=== PATIENT | female | born 1985 | race Two or more races ===

== ENCOUNTER 2024-12-20 10:06 | Inpatient (IN) | payer MEDICAID, OTHER ==
[~2024-12-20] VITALS: Ht 165.1 cm; Wt 97.8 kg
[2024-12-20] MEDS: KETOROLAC TROMETH 30 MG/ML 1ML VIAL IV ONE (10:43)
--- NOTE | 2024-12-20 10:43 | ED.PDOC ---
History of Present Illness HPI Comments Patient is a 39-year-old female with a past medical history of type 2 diabetes mellitus, hypertension, hyperlipidemia presented to the ED with a chief complaint of abdominal pain for the last 2 weeks. Patient reported she was constipated for about a week, started to have abdominal pain located across the lower abdomen in the left lower quadrant, suprapubic area and the right lower quadrant, constant with intermittent episodes of sharp pain, nonradiating, no associated diarrhea/vomiting/nausea, denied dysuria/increased frequency. Patient went to the urgent care on Friday and was advised to drink more water and increased fiber. She reports to having a small bowel movement yesterday, and complains of pressure in her anal region. Patient does not report of any abdominal surgeries in the past, last menstrual cycle was on 09 December. Chief Complaint: Abdominal Pain Time Seen by MD: 10:18 Allergies: Coded Allergies: NO KNOWN ALLERGIES (Unverified , 12/20/24) Mode of Arrival: Ambulatory Past Medical History PAST MEDICAL HISTORY: DM, High Lipids, HTN Surgical History: Denies all surgeries MAGNETIC RESONANCE IMAGING COORDINATOR History: No Pertinent MAGNETIC RESONANCE IMAGING COORDINATOR History Family History Family History: Reviewed,noncontributory to illness, No family hx of Cancer, No family hx of DM, No family hx of Heart vincent, No family hx of HTN, No family hx ofKidney vincent, No family hx of Liver vincent, No family hx of Lung vincent, No family hx of Stroke Social History Smoker: Non-Smoker Alcohol: Denies ETOH Use Drugs: Denies Drug Use Constitutional: denies: chills, diaphoresis, fatigue, fever, malaise, sweats, weakness, others EENTM: denies: blurred vision, double vision, ear bleeding, ear discharge, ear drainage, ear pain, ear ringing, eye pain, eye redness, hearing loss, mouth pain, mouth swelling, nasal discharge, nose bleeding, nose congestion, nose pain, photophobia, tearing, throat pain, throat swelling, voice changes, others Respiratory: denies: cough, hemoptysis, orthopnea, SOB at rest, shortness of breath, SOB with excertion, stridor, wheezing, others Cardiovascular: denies: chest pain, dizzy spells, diaphoresis, Dyspnea on exertion, edema, irregular heart beat, left arm pain, lightheadedness, palpitations, PND, syncope, others Gastrointestinal: reports: abdominal pain, constipated, poor appetite Genitourinary: denies: abnormal vagina bleeding, burning, dyspareunia, dysuria, flank pain, frequency, hematuria, incontinence, pain, , vagina discharge, urgency, others Neurological: denies: dizziness, fainting, headache, left sided numbness, left sided weakness, numbness, paresthesia, pre-existing deficit, right sided numbness, right sided weakness, seizure, speech problems, tingling, tremors, weakness, others Musculoskeletal: denies: back pain, gout, joint pain, joint swelling, muscle pain, muscle stiffness, neck pain, others Integumetry: denies: bruises, change in color, change in hair/nails, dryness, laceration, lesions, lumps, rash, wounds, others Allergic/Immunocompromised: denies: Difficulty Healing, Frequent Infections, Hives, Itching, others Hematologic/Lymphatic: denies: anemia, blood clots, easy bleeding, easy bruising, swollen glands, others Endocrine: denies: excessive hunger, excessive sweating, excessive thirst, excessive urination, flushing, intolerance to cold, intolerance to heat, unexplained weight gain, unexplained weight loss, others Psychiatric: denies: anxiety, bipolar disorder, depression, hopeless, panic disorder, schizophrenia, sleepless, suicidal, others Physical Exam General Appearance: Mild Distress HEENT: Normal ENT Inspection, Pharynx Normal, TMs Normal Neck: Full Range of Motion, Non-Tender, Normal, Normal Inspection Respiratory: Chest Non-Tender, Lungs Clear, No Accessory Muscle Use, No Respiratory Distress, Normal Breath Sounds Cardiovascular: No Edema, No JVD, No Murmur, No Gallop, Normal Peripheral Pulses, Regular Rate/Rhythm Breast Exam: Deferred Gastrointestinal: LLQ, Normal Bowel Sounds, RLQ, Suprapubic, Tenderness Genitalia: Deferred Pelvic: Deferred Rectal: Deferred Extremities: No calf tenderness, Normal capillary refill, Normal inspection, Normal range of motion, Non-tender, No pedal edema Neurologic: Alert, snowboard instructor II-XII nml as Tested, No Motor Deficits, Normal Affect, Normal Mood, No Sensory Deficits Cerebellar Function: Normal Reflexes: Normal Skin: Dry, Normal Color, Warm Peripheral Pulses: 2+ carotid (R), 2+ carotid (L), 2+ femoral (R), 2+ femoral (L), 2+ dorsalis pedis (R), 2+ dorsalis pedis (L), 2+ Radial (R), 2+ Radial (L) Lymphatic: No Adenopathy Was a procedure done? Was a procedure done?: No Differential Dx Considerations may include: Acute diverticulitis, colitis, appendicitis, cystitis, rule out ectopic X-Ray, Labs, Meds, VS Vital Signs Date Time Temp Pulse Resp B/P (MAP) Pulse Ox O2 Delivery O2 Flow Rate FiO2 12/20/24 10:44 102 18 95 Room Air 12/20/24 10:44 102 18 124/73 (90) 95 12/20/24 10:19 97.9 110 17 119/97 (104) 99 97.9 Lab Test 12/20/24 11:24 12/20/24 10:39 12/20/24 10:38 Range/Units White Blood Count 19.5 H 4.4-10.8 10^3/uL Red Blood Count 4.89 4.0-5.20 10^6/uL Hemoglobin 14.2 12.2-16.2 g/dL Hematocrit 42.8 36.0-46.0 % Mean Corpuscular Volume 87.4 80.0-100.0 fL Mean Corpuscular Hemoglobin 29.1 28.0-32.0 pg Mean Corpuscular Hemoglobin Concent 33.3 32.0-36.0 g/dL Red Cell Distribution Width 14.0 11.8-14.3 % Platelet Count 374 140-450 10^3/uL Mean Platelet Volume 8.6 6.9-10.8 fL Neutrophils (%) (Auto) 84.9 H 37.0-80.0 % Lymphocytes (%) (Auto) 7.0 L 10.0-50.0 % Monocytes (%) (Auto) 6.8 0.0-12.0 % Eosinophils (%) (Auto) 0.5 0.0-7.0 % Basophils (%) (Auto) 0.8 0.0-2.0 % Neutrophils # (Auto) 16.5 H 1.6-8.6 10 ^3/uL Lymphocytes # (Auto) 1.4 0.4-5.4 10 ^3/uL Monocytes # (Auto) 1.3 0-1.3 10 ^3/uL Eosinophils # (Auto) 0.1 0-0.8 10 ^3/uL Basophils # (Auto) 0.2 0-0.2 10 ^3/uL Nucleated Red Blood Cells 0.0 % Sodium Level 137 136-145 mmol/L Potassium Level 4.3 3.5-5.1 mmol/L Chloride Level 102 98-107 mmol/L Carbon Dioxide Level 25 20-31 mmol/L Anion Gap 10 5-15 Blood Urea Nitrogen 9 9-23 mg/dL Creatinine 0.76 0.550-1.02 mg/dL Glomerular Filtration Rate Calc 103 >90 mL/min BUN/Creatinine Ratio 11.8 10.0-20.0 Serum Glucose 179 H 74-106 mg/dL Calcium Level 10.4 8.7-10.4 mg/dL Urine Opiates Screen Neg NEGATIVE Urine Fentanyl Screen Neg NEGATIVE Urine Barbiturates Screen Neg NEGATIVE Urine Phencyclidine Screen Neg NEGATIVE Urine Amphetamines Screen Neg NEGATIVE Urine Benzodiazepines Screen Neg NEGATIVE Urine Cocaine Screen Neg NEGATIVE Urine Cannabinoids Screen Neg NEGATIVE Urine Color Light-yellow Yellow Urine Clarity Clear Clear Urine pH 6.0 5.0-9.0 Urine Specific [place] 1.043 H 1.001-1.035 Urine Protein Negative Negative Urine Ketones 1+ H Negative Urine Blood Negative Negative /uL Urine Nitrite Negative Negative Urine Bilirubin Negative Negative Urine Urobilinogen Normal Negative mg/dL Urine Leukocyte Esterase Negative Negative /uL Urine RBC 2 0 - 4 /hpf Urine Microscopic WBC 1 0-5 /HPF Urine Squamous Epithelial Cells Few <5 /hpf Urine Bacteria None seen None Seen /hpf Urine Glucose 4+ H Normal mg/dL Urine Test Negative Negative Current Medications Medications (Trade) Dose Ordered Sig/[facility] Route Start Time Stop Time Status Last Admin Ketorolac Tromethamine (Toradol Injection) 15 mg ONCE ONCE IV 12/20/24 10:45 12/20/24 10:46 DC 12/20/24 10:43 Sodium Chloride 500 ml @ 500 mls/hr Q1H ONCE IV 12/20/24 11:30 12/20/24 12:29 DC 12/20/24 11:37 Piperacillin Sod/ Tazobactam Sod 100 ml @ 100 mls/hr ONCE ONCE IV 12/20/24 12:30 12/20/24 13:29 12/20/24 12:51 Sodium Chloride 2,000 ml @ 1,000 mls/hr Q2H ONCE IV 12/20/24 12:30 12/20/24 14:29 12/20/24 12:40 Patient is a 39-year-old female presented to the ED with a chief complaint of abdominal pain across the lower abdomen since the last 2 weeks. Patient reported of constipation, denied any history of abdominal surgeries, urine test was negative. CT abdomen pelvis without contrast was done which showed 9.3 cm right adnexal cystic mixed density mass probably representing a cystic and solid mass, cholelithiasis. Patient had elevated WBC count with left shift and was tachycardic, with suspicion of with the mass being in abscess, patient was given Zosyn 3.375 mg 1 dose, pelvic ultrasound was done and OBGYN were consulted, spoke with Dr. Florentino, and the agricultural consultant once pelvic ultrasound results to be discussed once they are back. Patient will need further inpatient management and she agrees to the plan. Time of 1ST Reevaluation: 11:50 Reevaluation 1ST: Improved Time of 2ND Reevaluation: 12:24 Reevaluation 2ND: Improved Patient Education/Counseling: Diagnosis, Treatment Family Education/Counseling: No Family Present SEPSIS Sepsis Screen Date sepsis recognized/suspect: Dec 20, 2024 Time Sepsis recognized/suspect: 101 Recent Procedure: No On Antibiotic Therapy: No Respiratory Rate >20: No Heart Rate >90: Yes Temp<36 C (96.8 F) or >38.3 C: No SBP <90 or MAP <65 mmHG: No New Acute Mental Status Change: No Is the patient on CPAP, BIPAP,: No Physician Orders Heplock Iv (12/20/24 10:33) Ct Ab Pel Wo Con-No Oral Or Iv (12/20/24 11:24) Lactic Acid W/ Reflex Order (12/20/24 12:25) Piperacillin-Tazob 3.375gm (Zosyn 3.375g (12/20/24 12:30) Pelvic (12/20/24 12:25) Sodium Chloride 0.9% (12/20/24 12:30) * Blanket Cutter Hand Consultation (12/20/24 12:29) Vital Signs Date Time Temp Pulse Resp B/P (MAP) Pulse Ox O2 Delivery O2 Flow Rate FiO2 12/20/24 10:44 102 18 95 Room Air 12/20/24 10:44 102 18 124/73 (90) 95 12/20/24 10:19 97.9 110 17 119/97 (104) 99 97.9 Laboratory Tests Test 12/20/24 11:24 White Blood Count 19.5 10^3/uL (4.4-10.8) H Medications Medications Dose Ordered Sig/[facility] Route Start Time Stop Time Status Last Admin Dose Admin Ketorolac Tromethamine 15 mg ONCE ONCE IV 12/20/24 10:45 12/20/24 10:46 DC 12/20/24 10:43 Piperacillin Sod/ Tazobactam Sod 100 ml @ 100 mls/hr ONCE ONCE IV 12/20/24 12:30 12/20/24 13:29 12/20/24 12:51 Sodium Chloride 500 ml @ 500 mls/hr Q1H ONCE IV 12/20/24 11:30 12/20/24 12:29 DC 12/20/24 11:37 Sodium Chloride 2,000 ml @ 1,000 mls/hr Q2H ONCE IV 12/20/24 12:30 12/20/24 14:29 12/20/24 12:40 Departure 1 Departure Time of Disposition: 12:30 Impression: Primary Impression: Adnexal mass Additional Impressions: Constipation Sepsis Cholelithiases Disposition: ADMITTED INPATIENT Condition: Fair Critical Care Note Critical Care Time?: No Stability Stability form required: No Heart Score Heart Score: Heart Score Response (Comments) Value History N/A 0 EKG N/A 0 Age N/A 0 Risk Factors N/A 0 Troponin N/A 0 Total 0 TRINO ULLOA RESIDENT Dec 20, 2024 10:43
[2024-12-20 11:06] LABS: Amphetamine Screen, Urine Neg (NEGATIVE); Barbiturate Scree,Urine Neg (NEGATIVE); Benzodiazephine Screen, Urine Neg (NEGATIVE); Cannabinoid Screen, Urine Neg (NEGATIVE); Cocaine Screen, Urine Neg (NEGATIVE); Opiate Scree,Urine Neg (NEGATIVE); Phencyclidine Screen, Urine Neg (NEGATIVE)
[2024-12-20 11:07] LABS: Urine Protein, UAD Negative (Negative)
[2024-12-20] MEDS: SODIUM CHLORIDE 0.9% 500 ML IV ONE (11:37)
[2024-12-20 11:38] LABS: Hematocrit 42.8 % (36.0-46.0); Hemoglobin 14.2 g/dL (12.2-16.2); Mean Corpuscular Hemoglobin 29.1 pg (28.0-32.0); Mean Corpuscular Volume 87.4 fL (80.0-100.0); Nucleated Red Blood Cells % 0.0 %
[2024-12-20 11:48] LABS: Chloride 102 mmol/L (98-107); Potassium 4.3 mmol/L (3.5-5.1); Sodium 137 mmol/L (136-145)
[2024-12-20 11:49] LABS: Anion Gap 10 (5-15); Calcium 10.4 mg/dL (8.7-10.4); Carbon Dioxide 25 mmol/L (20-31)
[2024-12-20 11:54] LABS: BUN/Creatinine Ratio 11.8 (10.0-20.0); Blood Urea Nitrogen 9 mg/dL (9-23); Glucose 179 mg/dL (74-106)
--- NOTE | 2024-12-20 12:05 | DVH ---
Exam: CT CT AB PEL WO CON-NO ORAL OR IV History: lower abd pain Comparison Study: None Technique: Multidetector spiral CT of the abdomen and pelvis was performed from lung bases to pubic s ymphysis. Imaging was performed without intravenous contrast. Coronal and sagittal multiplanar reform ats were obtained from the axial data set by the technologist. Radiation Dose : 1. Abdomen/Pelvis: CTDIvol 19.54 mGy, DLP 1046.65 mGy*cm. Findings: Evaluation of vasculature and solid organs is limited due to lack of intravenous contrast use. Lung Bases: Lung bases are clear. Visualized portions of the heart and pericardium are unremarkable. Liver: The liver is normal in size. No focal lesions. Diffusely hypoattenuating liver parenchyma con sistent with hepatic steatosis. Gallbladder and Biliary Tree: Gallstone. No intrahepatic or extrahepatic biliary ductal dilatation. Spleen: Unremarkable Pancreas: The pancreas is grossly unremarkable. Adrenal Glands: Unremarkable Kidneys: Kidneys are unremarkable without calculi or hydronephrosis. GI tract: The stomach is grossly normal in appearance. No evidence of small bowel wall thickening or abnormal dilatation to suggest bowel obstruction. Stool throughout the colon with peripheral lucency representing intraluminal gas. The appendix is not visualized, however no inflammatory changes in the right lower quadrant to suggest acute appendicitis. Peritoneum/mesentery/retroperitoneum. No evidence of free intraperitoneal air. No ascites. No evidenc e of suspicious lymphadenopathy. Abdominal Wall: Unremarkable. Vasculature: The visualized abdominal aorta is normal in size and caliber. Evaluation of abdominal a nd pelvic vessels is limited due to lack of intravenous contrast. Urinary Bladder: Grossly unremarkable for degree of distention. Pelvic Organs: Right adnexal mass is present measuring 7.1 x 9.3 cm attenuation and soft tissue densi ty. Musculoskeletal: No aggressive focal bony lesions, acute fractures or dislocation. Grade 1 anterolist hesis L5-S1. IMPRESSION: 1. No acute abdominal or pelvic findings. 2. 9.3 cm right adnexal cystic mixed density mass probably representing a cystic and solid mass. Pel jo ann ultrasound recommended for further evaluation. 3. Gallstones.
[2024-12-20] MEDS: SODIUM CHLORIDE 0.9% 2,000 ML IV ONE (12:40)
[2024-12-20] MEDS: PIPERACILLIN-TAZOB 3.375GM 100 ML IV ONE (12:51)
--- NOTE | 2024-12-20 14:12 | DVH ---
INDICATION: lower abd pain, right adnex mass on ct TECHNIQUE: Multiple real-time grayscale transabdominal sonographic images along with color and duplex Doppler of the uterus and ovaries were obtained. COMPARISON: None FINDINGS: The uterus measures 10.5 x 5.2 x 5.8 cm. The endometrial stripe measures 1.6 cm. Right ovary measures 10.0 x 6.5 x 8.0 cm with normal Doppler color flow. Probable hemorrhagic right o varian cyst measures 6.6 cm. Left ovary measures 3.1 x 1.8 x 2.7 cm with normal Doppler color flow IMPRESSION: Probable hemorrhagic cyst in the right ovary measures 6.6 cm. Clinical correlation advised. Repeat u ltrasound could be obtained in 6 weeks to assess for complete resolution.
[2024-12-20] MEDS: ACCU-CHEK COMFORT CURVE STRIP VI SCH (16:00)
[2024-12-20] MEDS ORDERED: ONDANSETRON HCL 4 MG/2 ML VIAL IV PRN (16:00)
[2024-12-20] MEDS: InsuLIN REG 1unit/0.01ml Soln (100units/ml) SC SCH (16:00)
[2024-12-20] MEDS ORDERED: DEXTROSE (50%) 50ML SYRG IV PRN (16:00)
[2024-12-20] MEDS ORDERED: ACETAMINOPHEN 325 MG TAB PO PRN (16:00)
[2024-12-20] MEDS ORDERED: NITROGLYCERIN 0.4 MG SL TAB SL PRN (17:15)
[2024-12-20] MEDS ORDERED: MORPHINE SULFATE INJ 2 MG/ml SYRG IV PRN (17:15)
--- NOTE | 2024-12-20 17:15 | DVHHP2 ---
VIVIANE GUIDRY Ananda [facility] 12/20/24 1715: History of Present Illness Reason for Visit: Sepsis, unspecified organism History of Present Illness The patient is a 39-year-old female with past medical history of DM, hypertension, and hyperlipidemia who presented to [facility] ED with complaint of abdominal pain for the past 2 weeks. Patient reported she was constipated for about a week, started to have abdominal pain located across the lower abdomen in the left lower quadrant, suprapubic area radiating to the right lower quadrant, constant with intermittent episodes of sharp pain, getting worse that prompted this visit. Patient was seen and evaluated in the ED, laboratory data shows WBC 19.5, platelets 374, sodium 137, potassium 4.3, BUN 9, creatinine 0.76, glucose 179, calcium 10.4, lactic acid 1.2, blood pressure 124/73, heart rate 102, temperature 97.9 F, O2 saturation 99% room air. Abdomen/pelvis CT revealing 9.3 cm right adrenal cystic mixed density mass probably representing a cystic and solid mass, no acute abdominal pelvic findings. Pelvic ultrasound revealing probable hemorrhagic cyst in the right ovary measures 6.6 cm. Please see medication orders section in the computer. On my assessment, patient denies chest pain, no headache, no dizziness, no shortness of breaths, no diarrhea, no abdominal pain at this moment, no nausea, no vomiting, no fever, no chills. Patient was admitted for further evaluation and medical management. Past Medical History DM, High Lipids, HTN Past Surgical History Denies all surgeries Family History Reviewed, noncontributory to the management of this case. Past Social History The patient lives at home, denies smoking, alcohol or illicit drugs abuse. Review of Systems Constitutional: No: Fever, Chills, Sweats, Weakness, Malaise, Other Eyes: No: Pain, Vision change, Conjunctivae inflammation, Eyelid inflammation, Other, Redness ENT: No: Ear pain, Ear discharge, Nose pain, Nose discharge, Nose congestion, Mouth pain, Mouth swelling, Throat pain, Throat swelling, Other Respiratory: No: Cough, Dry, Shortness of breath, SOB with excertion, Wheezing, Hemoptysis, Pleuritic Pain, Sputum, Wheezing, Other Cardiovascular: No: Chest Pain, Palpitations, Orthopnea, Paroxysmal Noc. Dyspnea, Edema, Lt Headedness, Other Gastrointestinal: Abdominal Pain, Constipation, Other (Poor appetite); No: Nausea, Vomiting, Diarrhea, Melena, Hematochezia Genitourinary: No Dysuria, No Frequency, No Incontinence, No Hematuria, No Retention, No Other Musculoskeletal: No: other, neck pain, shoulder pain, arm pain, back pain, hand pain, leg pain, foot pain Skin: No: Rash, Lesions, Jaundice, Bruising, Other Neurological: No: Weakness, Numbness, Incoordination, Change in speech, Confusion, Seizures, Other Allergies: Coded Allergies: NO KNOWN ALLERGIES (Unverified , 12/20/24) Medications Current Medications Medications Dose Ordered Sig/Nya Route Start Time Stop Time Status Last Admin Dose Admin Piperacillin Sod/ Tazobactam Sod 100 ml @ 25 mls/hr Q8HR IV 12/20/24 16:02 Losartan Potassium 25 mg DAILY PO 12/21/24 10:00 Atorvastatin Calcium 20 mg HS PO 12/20/24 22:00 Clonidine HCl 0.1 mg Q4HP PRN PO 12/20/24 16:00 Diagnostic Test (Pha) 1 strip IQ4HR 12/20/24 16:00 Insulin Human Regular IQ4HR SC 12/20/24 16:00 Dextrose 50 ml UD PRN IV 12/20/24 16:00 Sodium Chloride 1,000 ml @ 60 mls/hr [id number] IV 12/20/24 16:00 Acetaminophen/ Hydrocodone Bitart 1 tab Q4HP PRN PO 12/20/24 16:00 Ondansetron HCl 4 mg Q4HP PRN IV 12/20/24 16:00 Docusate Sodium 100 mg BIDPRN PRN PO 12/20/24 16:00 Acetaminophen 650 mg Q6HP PRN PO 12/20/24 16:00 Exam Vital Signs Vital Signs Date Time Temp Pulse Resp B/P (MAP) Pulse Ox O2 Delivery O2 Flow Rate FiO2 12/20/24 10:44 102 18 95 Room Air 12/20/24 10:44 124/73 (90) 12/20/24 10:19 97.9 97.9 General Appearance: Alert, Oriented X3, Cooperative, No acute distress HEENT: Atraumatic, PERRLA, EOMI, Mucous membr. moist/pink Respiratory: Normal air movement Cardiovascular: Regular rate, Normal S1, Normal S2, No murmurs Abdominal: Normal bowel sounds, Soft, No hepatospenomegaly, No masses, Other (Reports tenderness) Extremities: No clubbing, No cyanosis, No edema, Normal pulses, No tenderness/swelling Skin: No rashes, No breakdown, No significant lesion Neuro: Normal gait, Normal speech, Strength at 5/5 X4 ext, Normal tone, Sensation intact, Cranial nerves 3-12 NL, Reflexes 2+ Psych/Mental Status: Mental status NL, Mood NL Labs/Xrays Labs Test 12/20/24 13:01 12/20/24 11:24 12/20/24 10:39 12/20/24 10:38 Range/Units Lactic Acid Level 1.2 0.4-2.0 mmol/L White Blood Count 19.5 H 4.4-10.8 10^3/uL Red Blood Count 4.89 4.0-5.20 10^6/uL Hemoglobin 14.2 12.2-16.2 g/dL Hematocrit 42.8 36.0-46.0 % Mean Corpuscular Volume 87.4 80.0-100.0 fL Mean Corpuscular Hemoglobin 29.1 28.0-32.0 pg Mean Corpuscular Hemoglobin Concent 33.3 32.0-36.0 g/dL Red Cell Distribution Width 14.0 11.8-14.3 % Platelet Count 374 140-450 10^3/uL Mean Platelet Volume 8.6 6.9-10.8 fL Neutrophils (%) (Auto) 84.9 H 37.0-80.0 % Lymphocytes (%) (Auto) 7.0 L 10.0-50.0 % Monocytes (%) (Auto) 6.8 0.0-12.0 % Eosinophils (%) (Auto) 0.5 0.0-7.0 % Basophils (%) (Auto) 0.8 0.0-2.0 % Neutrophils # (Auto) 16.5 H 1.6-8.6 10 ^3/uL Lymphocytes # (Auto) 1.4 0.4-5.4 10 ^3/uL Monocytes # (Auto) 1.3 0-1.3 10 ^3/uL Eosinophils # (Auto) 0.1 0-0.8 10 ^3/uL Basophils # (Auto) 0.2 0-0.2 10 ^3/uL Nucleated Red Blood Cells 0.0 % Sodium Level 137 136-145 mmol/L Potassium Level 4.3 3.5-5.1 mmol/L Chloride Level 102 98-107 mmol/L Carbon Dioxide Level 25 20-31 mmol/L Anion Gap 10 5-15 Blood Urea Nitrogen 9 9-23 mg/dL Creatinine 0.76 0.550-1.02 mg/dL Glomerular Filtration Rate Calc 103 >90 mL/min BUN/Creatinine Ratio 11.8 10.0-20.0 Serum Glucose 179 H 74-106 mg/dL Calcium Level 10.4 8.7-10.4 mg/dL Urine Opiates Screen Neg NEGATIVE Urine Fentanyl Screen Neg NEGATIVE Urine Barbiturates Screen Neg NEGATIVE Urine Phencyclidine Screen Neg NEGATIVE Urine Amphetamines Screen Neg NEGATIVE Urine Benzodiazepines Screen Neg NEGATIVE Urine Cocaine Screen Neg NEGATIVE Urine Cannabinoids Screen Neg NEGATIVE Urine Color Light-yellow Yellow Urine Clarity Clear Clear Urine pH 6.0 5.0-9.0 Urine Specific [place] 1.043 H 1.001-1.035 Urine Protein Negative Negative Urine Ketones 1+ H Negative Urine Blood Negative Negative /uL Urine Nitrite Negative Negative Urine Bilirubin Negative Negative Urine Urobilinogen Normal Negative mg/dL Urine Leukocyte Esterase Negative Negative /uL Urine RBC 2 0 - 4 /hpf Urine Microscopic WBC 1 0-5 /HPF Urine Squamous Epithelial Cells Few <5 /hpf Urine Bacteria None seen None Seen /hpf Urine Glucose 4+ H Normal mg/dL Urine Test Negative Negative PATIENT: LUCIANA THAKUR ACCT: [id number] UNIT: [id number] : 1985 LOC: ER ROOM / BED: / AGE / SEX: 39 / F ADM STATUS: REG ER SERVICE 1124 ORDERING PHYSICIAN: TRINO ULLOA RESIDENT PROCEDURE(s): ABPL - CT AB PEL WO CON-NO ORAL OR IV REASON: lower abd pain ORDER NUMBER(s): [id number], ACCESSION NUMBER(s): [id number] Exam: CT CT AB PEL WO CON-NO ORAL OR IV History: lower abd pain Comparison Study: None Technique: Multidetector spiral CT of the abdomen and pelvis was performed from lung bases to pubic symphysis. Imaging was performed without intravenous contrast. Coronal and sagittal multiplanar reformats were obtained from the axial data set by the technologist. Radiation Dose : 1. Abdomen/Pelvis: CTDIvol 19.54 mGy, DLP 1046.65 mGy*cm. Findings: Evaluation of vasculature and solid organs is limited due to lack of intravenous contrast use. Lung Bases: Lung bases are clear. Visualized portions of the heart and pericardium are unremarkable. Liver: The liver is normal in size. No focal lesions. Diffusely hypoattenuating liver parenchyma consistent with hepatic steatosis. Gallbladder and Biliary Tree: Gallstone. No intrahepatic or extrahepatic biliary ductal dilatation. Spleen: Unremarkable Pancreas: The pancreas is grossly unremarkable. Adrenal Glands: Unremarkable Kidneys: Kidneys are unremarkable without calculi or hydronephrosis. GI tract: The stomach is grossly normal in appearance. No evidence of small bowel wall thickening or abnormal dilatation to suggest bowel obstruction. Stool throughout the colon with peripheral lucency representing intraluminal gas. The appendix is not visualized, however no inflammatory changes in the right lower quadrant to suggest acute appendicitis. Peritoneum/mesentery/retroperitoneum. No evidence of free intraperitoneal air. No ascites. No evidence of suspicious lymphadenopathy. Abdominal Wall: Unremarkable. Vasculature: The visualized abdominal aorta is normal in size and caliber. Evaluation of abdominal and pelvic vessels is limited due to lack of intravenous contrast. Urinary Bladder: Grossly unremarkable for degree of distention. Pelvic Organs: Right adnexal mass is present measuring 7.1 x 9.3 cm attenuation and soft tissue density. Musculoskeletal: No aggressive focal bony lesions, acute fractures or dislocation. Grade 1 anterolisthesis L5-S1. IMPRESSION: 1. No acute abdominal or pelvic findings. 2. 9.3 cm right adnexal cystic mixed density mass probably representing a cystic and solid mass. Pelvic ultrasound recommended for further evaluation. 3. Gallstones. ORDERING PHYSICIAN: TRINO ULLOA RESIDENT PROCEDURE(s): PELUS - PELVIC REASON: lower abd pain, right adnex mass on ct ORDER NUMBER(s): [id number], ACCESSION NUMBER(s): [id number] INDICATION: lower abd pain, right adnex mass on ct TECHNIQUE: Multiple real-time grayscale transabdominal sonographic images along with color and duplex Doppler of the uterus and ovaries were obtained. COMPARISON: None FINDINGS: The uterus measures 10.5 x 5.2 x 5.8 cm. The endometrial stripe measures 1.6 cm. Right ovary measures 10.0 x 6.5 x 8.0 cm with normal Doppler color flow. Probable hemorrhagic right ovarian cyst measures 6.6 cm. Left ovary measures 3.1 x 1.8 x 2.7 cm with normal Doppler color flow IMPRESSION: Probable hemorrhagic cyst in the right ovary measures 6.6 cm. Clinical correlation advised. Repeat ultrasound could be obtained in 6 weeks to assess for complete resolution. Assessment/Plan Assessment/Plan Adnexal mass Cholelithiases Constipation Sepsis, unspecified organisms Plan 1. Admit to telemetry unit 2. Breathing treatment 3. Pain control management 4. IV antibiotic management 5. Management of fluids and electrolytes 6. Consultation for hospitalist 7. Diagnostic test abdomen/pelvis CT 8. DVT prophylaxis-on SCDs 9. Repeat labs CBC, CMP in a.m. 10. Home medication reviewed and reconciled 11. Continue with current medical management 12. Treatment plan discussed with patient and RN. Patient verbalized understanding. Plan discussed with: Patient, Other (RN) My Orders Orders - VIVIANE GUIDRY DNP Procedure Category Date Status Time Piperacillin-Tazob PHA 12/20/24 In Process 3.375gm (Zosyn 3.375g 16:02 Losartan Tablet PHA 12/21/24 In Process (Cozaar Tablet) 10:00 Atorvastatin (Lipitor) PHA 12/20/24 In Process 22:00 Consistent DIET 12/20/24 Transmitted Carb(Ccho)Diabetes Dinner Clonidine Hcl Tablet PHA 12/20/24 In Process (Catapres Tablet) 16:00 Glucose Blood PHA 12/20/24 In Process (Accu-Chek Comfort 16:00 Insulin R (Human) PHA 12/20/24 In Process (Insulin R) 16:00 Dextrose 50% Syringe PHA 12/20/24 In Process 16:00 Allergies ALEAH 12/20/24 In Process 15:54 Code Status CODE 12/20/24 Transmitted 15:54 Sodium Chloride 0.9% PHA 12/20/24 In Process 16:00 Oxygen Per Hour RT 12/20/24 Transmitted 15:54 Hydrocodone-Acet PHA 12/20/24 In Process 5/325mg Tab ([place] 16:00 Ondansetron Hcl PHA 12/20/24 In Process (Zofran) 16:00 Docusate Sodium PHA 12/20/24 In Process Capsule (Colace 16:00 Complete Blood Count LAB 12/21/24 Verified 04:00 Comprehensive LAB 12/21/24 Verified Metabolic Panel 04:00 Condition: Serious [facility] 12/20/24 In Process 15:54 Acetaminophen Tablet [facility] 12/20/24 In Process (Tylenol Tablet) 16:00 Bedrest With Bathroom [facility] 12/20/24 In Process Privileg 15:54 Sequential [facility] 12/20/24 In Process Compression Device Admit ADMIT 12/20/24 Verified 17:13 Nitroglycerin [facility] 12/20/24 Verified Sublingual (Ntrostat 17:15 Morphine Sulfate [facility] 12/20/24 Verified Injection 17:15 Stat Ekg For Chest [facility] 12/20/24 Verified Pain 17:13 Notify Md Of Changes [facility] 12/20/24 Verified From Base 17:13 Collections Clerk For [facility] 12/20/24 Verified 24 Hours 17:13 Emergency Dysrhythmia [facility] 12/20/24 Verified Protocol 17:13 Rhythm Strips Once [facility] 12/20/24 Verified Every Shift 17:13 Oxygen By Nasal 12/20/24 Verified Cannula 17:13 Problem List: (1) Adnexal mass (2) Cholelithiases (3) Constipation (4) Sepsis, unspecified organism Date of Service: Dec 20, 2024 Billing Provider: VIVIANE GUIDRY DNP Common Visit Codes: [id number] INP/OBS CARE (HIGH) DAYLIN HARTMAN DO 12/20/24 2348: Review of Systems Allergies: Coded Allergies: NO KNOWN ALLERGIES (Unverified , 12/20/24) VIVIANE GUIDRY DNP Dec 20, 2024 17:15 DAYLIN HARTMAN DO Dec 20, 2024 23:48
[2024-12-20 18:34] VITALS: BP 115/74; PULSE 91; RESP 13; TEMP 98.3; O2SAT 100
[2024-12-20] MEDS: PIPERACILLIN-TAZOB 3.375GM 100 ML IV SCH (18:41)
[2024-12-20] MEDS: SODIUM CHLORIDE 0.9% 1,000 ML IV SCH (18:44)
--- NOTE | 2024-12-20 20:07 | DVHINCON2 ---
Date of service: Dec 20, [address] Mitchell [email or web address] Reason for Consultation Pelvic pain pelvic mass leukocytosis History of Present Illness Patient has been feeling pain and fatigue for 2 weeks she denies diarrhea, constipation and/or significant nausea. She had normal bowel movement yesterday. She is a trying to achieve at this time. She starts off with emphatically " she does not want any surgery". I assured her that surgery would only be recommended if necessary after full evaluation. Patient did not understand what the significance of the elevated white count were as well as the findings in the pelvis suggestive of abscess or hemorrhagic ovarian cyst. She is in monogamous relationship for 6 years with her . She had no surgeries of any contributory significance in the past. Past Medical History Patient is diabetic well controlled. Past Surgical History No contributory surgeries Social History Denies Allergies: Coded Allergies: NO KNOWN ALLERGIES (Unverified , 12/20/24) Current Medications Current Medications Medications (Trade) Dose Ordered Sig/Nya Route PRN Reason Start Time Stop Time Status Last Admin Piperacillin Sod/ Tazobactam Sod 100 ml @ 25 mls/hr Q8HR IV 12/20/24 16:02 12/20/24 18:41 Losartan Potassium (Cozaar Tablet) 25 mg DAILY PO 12/21/24 10:00 Atorvastatin Calcium (Lipitor) 20 mg HS PO 12/20/24 22:00 Clonidine HCl (Catapres Tablet) 0.1 mg Q4HP PRN PO SBP>150 12/20/24 16:00 Diagnostic Test (Pha) (Accu-Chek Comfort Curve T) 1 strip IQ4HR 12/20/24 16:00 12/20/24 16:00 Insulin Human Regular (InsuLIN R) IQ4HR SC 12/20/24 16:00 Dextrose 50 ml UD PRN IV Blood Sugar LESS THAN 60 12/20/24 16:00 Sodium Chloride 1,000 ml @ 60 mls/hr [id number] IV 12/20/24 16:00 12/20/24 18:44 Acetaminophen/ Hydrocodone Bitart ([place] 5/325MG Tab) 1 tab Q4HP PRN PO MODERATE PAIN (4-6 PAIN SCALE) 12/20/24 16:00 Ondansetron HCl (Zofran) 4 mg Q4HP PRN IV NAUSEA / VOMITING 12/20/24 16:00 Docusate Sodium (Colace Capsule) 100 mg BIDPRN PRN PO FOR CONSTIPATION 12/20/24 16:00 Acetaminophen (Tylenol Tablet) 650 mg Q6HP PRN PO PAIN SCALE 1-3 OR TEMP>100.4 12/20/24 16:00 Nitroglycerin (Ntrostat Sublingual) 0.4 mg Q5MINP PRN SL FOR CHEST PAIN 12/20/24 17:15 Morphine Sulfate 2 mg Q30M PRN IV FOR CHEST PAIN 12/20/24 17:15 Review of Systems Constitutional: no fever, chill, weight loss HEENT: no eye pain, no hearing loss, no oral lesion, no scleral icterus Heart: no chest pain, no chest pressure Lung: no cough, no dyspnea with exertion Abdomen: see HPI : no pain with urination, normal appearing urine Musculoskeletal: no joint pain, no muscle pain Neurological: no seizure, no loss of sensation, no weakness in extremities Pysch: no depression, no anxiety Derm: no rash, no jaundice Vital Signs Vital Signs Date Time Temp Pulse Resp B/P (MAP) Pulse Ox O2 Delivery O2 Flow Rate FiO2 12/20/24 18:34 98.3 91 13 115/74 (88) 100 98.3 12/20/24 10:44 Room Air Physical Exam SKIN: No rash ecchymosis HEENT: Normal NECK: Soft CARDIAC: Slightly elevated heart rate otherwise no significant findings PULMONARY: Clear clear to auscultation ABDOMEN: Generalized right and left and suprapubic tenderness no peritoneal signs mild cervical motion tenderness normal external genitalia cervix MUSCULOSKELETAL: Normal-appearing slightly obese; Closed no vaginal bleeding NEURO: Alert awake oriented x3 Labs/Diagnostic Data Labs Test 12/20/24 18:35 12/20/24 13:01 12/20/24 11:24 12/20/24 10:39 Range/Units POC Glucose 96 70-106 mg/dl Lactic Acid Level 1.2 0.4-2.0 mmol/L White Blood Count 19.5 H 4.4-10.8 10^3/uL Red Blood Count 4.89 4.0-5.20 10^6/uL Hemoglobin 14.2 12.2-16.2 g/dL Hematocrit 42.8 36.0-46.0 % Mean Corpuscular Volume 87.4 80.0-100.0 fL Mean Corpuscular Hemoglobin 29.1 28.0-32.0 pg Mean Corpuscular Hemoglobin Concent 33.3 32.0-36.0 g/dL Red Cell Distribution Width 14.0 11.8-14.3 % Platelet Count 374 140-450 10^3/uL Mean Platelet Volume 8.6 6.9-10.8 fL Neutrophils (%) (Auto) 84.9 H 37.0-80.0 % Lymphocytes (%) (Auto) 7.0 L 10.0-50.0 % Monocytes (%) (Auto) 6.8 0.0-12.0 % Eosinophils (%) (Auto) 0.5 0.0-7.0 % Basophils (%) (Auto) 0.8 0.0-2.0 % Neutrophils # (Auto) 16.5 H 1.6-8.6 10 ^3/uL Lymphocytes # (Auto) 1.4 0.4-5.4 10 ^3/uL Monocytes # (Auto) 1.3 0-1.3 10 ^3/uL Eosinophils # (Auto) 0.1 0-0.8 10 ^3/uL Basophils # (Auto) 0.2 0-0.2 10 ^3/uL Nucleated Red Blood Cells 0.0 % Sodium Level 137 136-145 mmol/L Potassium Level 4.3 3.5-5.1 mmol/L Chloride Level 102 98-107 mmol/L Carbon Dioxide Level 25 20-31 mmol/L Anion Gap 10 5-15 Blood Urea Nitrogen 9 9-23 mg/dL Creatinine 0.76 0.550-1.02 mg/dL Glomerular Filtration Rate Calc 103 >90 mL/min BUN/Creatinine Ratio 11.8 10.0-20.0 Serum Glucose 179 H 74-106 mg/dL Calcium Level 10.4 8.7-10.4 mg/dL Urine Opiates Screen Neg NEGATIVE Urine Fentanyl Screen Neg NEGATIVE Urine Barbiturates Screen Neg NEGATIVE Urine Phencyclidine Screen Neg NEGATIVE Urine Amphetamines Screen Neg NEGATIVE Urine Benzodiazepines Screen Neg NEGATIVE Urine Cocaine Screen Neg NEGATIVE Urine Cannabinoids Screen Neg NEGATIVE Test 12/20/24 10:38 Range/Units Urine Color Light-yellow Yellow Urine Clarity Clear Clear Urine pH 6.0 5.0-9.0 Urine Specific [place] 1.043 H 1.001-1.035 Urine Protein Negative Negative Urine Ketones 1+ H Negative Urine Blood Negative Negative /uL Urine Nitrite Negative Negative Urine Bilirubin Negative Negative Urine Urobilinogen Normal Negative mg/dL Urine Leukocyte Esterase Negative Negative /uL Urine RBC 2 0 - 4 /hpf Urine Microscopic WBC 1 0-5 /HPF Urine Squamous Epithelial Cells Few <5 /hpf Urine Bacteria None seen None Seen /hpf Urine Glucose 4+ H Normal mg/dL Urine Test Negative Negative Primary Diagnosis Leukocytosis, hemorrhagic ovarian cyst versus pelvic abscess Admitting Diagnosis: PID, 6 cm questionable hemorrhagic ovarian cyst or abscess, 10 cm right ovarian volume. Left ovary polycystic otherwise normal uterus normal no free fluid in the pelvis. Leukocytosis with left shift Plan discussed with: Patient, Other (ER resident informed and agrees we will of the doctors Zand in a.m. to follow her treatment course.) Visit Coding OBGYN Date of Service: Dec 20, 2024 Billing Provider: DAYLIN HARTMAN DO DISTANCE LEARNING PROGRAM COORDINATOR Common Visit Codes: [id number] INP/OBS CARE(HIGH) DISTANCE LEARNING PROGRAM COORDINATOR Consultation Codes: [id number] CONSULT <40MIN DAYLIN HARTMAN DO Dec 20, 2024 20:07
[2024-12-20 21:00] VITALS: BP 105/61; PULSE 91; RESP 16; TEMP 99.1; O2SAT 98
[2024-12-20] MEDS: ATORVASTATIN 20 MG TAB PO SCH (23:22)
[2024-12-21] VITALS (7 sets, daily range): BP systolic 109–126; BP diastolic 57–80; PULSE 81–93; RESP 14–19; TEMP 98.4–98.7; O2SAT 96–99
--- NOTE | 2024-12-21 05:32 | DVHPN2 ---
Subjective Patient continues to have pelvic abdominal pain somewhat improved. She had no nausea or vomiting through the evening Reviewed: Care Plan Changes from previous H/P or p: No Changes Eyes: No Pain, No Vision change, No Conjunctivae inflammation, No Eyelid inflammation, No Other, No Redness ENT: No Ear pain, No Ear discharge, No Nose pain, No Nose discharge, No Nose congestion, No Mouth pain, No Mouth swelling, No Throat pain, No Throat swelling, No Other Cardiovascular: No Chest Pain, No Palpitations, No Orthopnea, No Paroxysmal Noc. Dyspnea, No Edema, No Lt Headedness, No Other Respiratory: No Cough, No Dry, No Shortness of breath, No SOB with excertion, No Wheezing, No Hemoptysis, No Pleuritic Pain, No Sputum, No Other Gastrointestinal: No Nausea, No Vomiting; Abdominal Pain; No Diarrhea; C onstipation; No Melena, No Hematochezia; Other (Poor appetite) Genitourinary: No Dysuria, No Frequency, No Incontinence, No Hematuria, No Retention, No Other Musculoskeletal: No other, No neck pain, No shoulder pain, No arm pain, No back pain, No hand pain, No leg pain, No foot pain Skin: No Rash, No Lesions, No Jaundice, No Bruising, No Other Objective Vitals Vital Signs Date Time Temp Pulse Resp B/P (MAP) Pulse Ox O2 Delivery O2 Flow Rate FiO2 12/21/24 01:00 98.5 90 18 111/57 (75) 96 98.5 12/20/24 10:44 Room Air Intake/Output Intake and Output 12/21/24 07:00 Intake Total 200 ml Balance 200 ml Intake IV Total 200 ml General Appearance: Alert Lungs: Clear to auscultation Abdomen: Normal bowel sounds, Other Rectal: Deferred Musculoskeletal: Normal sensory function Extremities: No clubbing, No cyanosis, No edema, Normal pulses, No tenderness/swelling, Other Neuro: Normal gait, Normal speech, Strength at 5/5 X4 ext, Normal tone, S ensation intact, Cranial nerves 3-12 NL, Reflexes 2+, Other Skin: Breakdown, Bruising, Significant Lesion, Cyanosis, Dry, Intact, Petechiae , Rashes, Warm, Wounds, Other Medications Current Medications Medications Dose Ordered Sig/Nya Route Start Time Stop Time Status Last Admin Dose Admin Piperacillin Sod/ Tazobactam Sod 100 ml @ 25 mls/hr Q8HR IV 12/20/24 16:02 12/20/24 23:22 25 MLS/HR Losartan Potassium 25 mg DAILY PO 12/21/24 10:00 Atorvastatin Calcium 20 mg HS PO 12/20/24 22:00 12/20/24 23:22 20 MG Clonidine HCl 0.1 mg Q4HP PRN PO 12/20/24 16:00 Diagnostic Test (Pha) 1 strip IQ4HR 12/20/24 16:00 12/21/24 04:45 1 STRIP Insulin Human Regular IQ4HR SC 12/20/24 16:00 Dextrose 50 ml UD PRN IV 12/20/24 16:00 Sodium Chloride 1,000 ml @ 60 mls/hr [id number] IV 12/20/24 16:00 12/20/24 18:44 60 MLS/HR Acetaminophen/ Hydrocodone Bitart 1 tab Q4HP PRN PO 12/20/24 16:00 Ondansetron HCl 4 mg Q4HP PRN IV 12/20/24 16:00 Docusate Sodium 100 mg BIDPRN PRN PO 12/20/24 16:00 Acetaminophen 650 mg Q6HP PRN PO 12/20/24 16:00 Nitroglycerin 0.4 mg Q5MINP PRN SL 12/20/24 17:15 Morphine Sulfate 2 mg Q30M PRN IV 12/20/24 17:15 Laboratory Results Laboratory Tests 12/20/24 11:24 Chemistry Test 12/20/24 11:24 Calcium Level 10.4 mg/dL (8.7-10.4) Urinalysis Test 12/20/24 10:38 Urine Color Light-yellow (Yellow) Urine Clarity Clear (Clear) Urine pH 6.0 (5.0-9.0) Urine Specific [place] 1.043 (1.001-1.035) Urine Protein Negative (Negative) Urine Ketones 1+ (Negative) H Urine Blood Negative /uL (Negative) Urine Nitrite Negative (Negative) Urine Bilirubin Negative (Negative) Urine Urobilinogen Normal mg/dL (Negative) Urine Leukocyte Esterase Negative /uL (Negative) Urine RBC 2 /hpf (0 - 4) Urine Microscopic WBC 1 /HPF (0-5) Urine Squamous Epithelial Cells Few /hpf (<5) Urine Bacteria None seen /hpf (None Seen) Urine Glucose 4+ mg/dL (Normal) H Urine Test Negative (Negative) Labs and/or images reviewed: Labs reviewed by me Assessment/Plan Plan discussed with: Patient, Other (I will be available by cell phone [phone] Dr. Myriam Bartlett will be taken over the consultation follow up) My Orders Orders - DAYLIN HARTMAN DO Procedure Category Date Status Time Complete Blood Count LAB 12/21/24 Verified 05:27 Date of Service: Dec 20, 2024 Billing Provider: DAYLIN HARTMAN DO Common Visit Codes: [id number] INP/OBS CARE(MOD) DAYLIN HARTMAN DO Dec 21, 2024 05:32
[2024-12-21 07:07] LABS: Hematocrit 38.6 % (36.0-46.0); Hemoglobin 13.2 g/dL (12.2-16.2); Mean Corpuscular Hemoglobin 30.0 pg (28.0-32.0); Mean Corpuscular Volume 88.0 fL (80.0-100.0); Nucleated Red Blood Cells % 0.0 %
[2024-12-21 07:26] LABS: Albumin 4.5 g/dL (3.2-4.8); Alkaline Phosphatase 85 U/L (46-116); Anion Gap 11 (5-15); BUN/Creatinine Ratio 17.1 (10.0-20.0); Bilirubin, Total 1.2 mg/dL (0.2-1.0); Blood Urea Nitrogen 12 mg/dL (9-23); Calcium 9.9 mg/dL (8.7-10.4); Carbon Dioxide 22 mmol/L (20-31); Chloride 105 mmol/L (98-107); Potassium 3.9 mmol/L (3.5-5.1); Sodium 138 mmol/L (136-145); Total Protein 7.8 g/dL (5.7-8.2)
[2024-12-21 07:27] LABS: Alanine Aminotransferase < 9 U/L (7-40); Glucose 108 mg/dL (74-106)
[2024-12-21] MEDS: LOSARTAN POTASSIUM 25 MG TAB PO SCH (09:36)
[2024-12-21] MEDS ORDERED: ATOR20TA50 PO (12:26)
[2024-12-21] MEDS ORDERED: DEXTROSE (50%) 50ML SYRG IV PRN (12:30)
--- NOTE | 2024-12-21 12:32 | DVHPN2 ---
Subjective Patient denies any abdominal pain at this time Reviewed: Care Plan Changes from previous H/P or p: No Changes General: Per HPI Eyes: No Pain, No Vision change, No Conjunctivae inflammation, No Eyelid inflammation, No Other, No Redness ENT: No Ear pain, No Ear discharge, No Nose pain, No Nose discharge, No Nose congestion, No Mouth pain, No Mouth swelling, No Throat pain, No Throat swelling, No Other Cardiovascular: No Chest Pain, No Palpitations, No Orthopnea, No Paroxysmal Noc. Dyspnea, No Edema, No Lt Headedness, No Other Respiratory: No Cough, No Dry, No Shortness of breath, No SOB with excertion, No Wheezing, No Hemoptysis, No Pleuritic Pain, No Sputum, No Other Gastrointestinal: No Nausea, No Vomiting; Abdominal Pain; No Diarrhea; C onstipation; No Melena, No Hematochezia; Other (Poor appetite) Genitourinary: No Dysuria, No Frequency, No Incontinence, No Hematuria, No Retention, No Other Musculoskeletal: No other, No neck pain, No shoulder pain, No arm pain, No back pain, No hand pain, No leg pain, No foot pain Skin: No Rash, No Lesions, No Jaundice, No Bruising, No Other Objective Vitals Vital Signs Date Time Temp Pulse Resp B/P (MAP) Pulse Ox O2 Delivery O2 Flow Rate FiO2 12/21/24 09:36 116/75 12/21/24 08:30 98.4 82 16 99 98.4 12/21/24 08:00 Room Air* 0 21 Intake/Output Intake and Output 12/21/24 06:59 Intake Total 200 ml Balance 200 ml Intake Oral 0 ml IV Total 200 ml General Appearance: Alert, Oriented X3, Cooperative, No acute distress HEENT: Atraumatic, PERRLA Lungs: Clear to auscultation Cardiovascular: Normal S1, Normal S2 Abdomen: Normal bowel sounds, Other Rectal: Deferred Musculoskeletal: Normal sensory function Extremities: No clubbing, No cyanosis, No edema, Normal pulses, No tenderness/swelling, Other Neuro: Normal gait, Normal speech, Strength at 5/5 X4 ext, Normal tone, S ensation intact, Cranial nerves 3-12 NL, Reflexes 2+, Other Skin: Dry, Intact, Warm Psych/Mental Status: Mental status NL, Mood NL Medications Current Medications Medications Dose Ordered Sig/Nya Route Start Time Stop Time Status Last Admin Dose Admin Piperacillin Sod/ Tazobactam Sod 100 ml @ 25 mls/hr Q8HR IV 12/20/24 16:02 12/21/24 05:48 25 MLS/HR Losartan Potassium 25 mg DAILY PO 12/21/24 10:00 12/21/24 09:36 25 MG Atorvastatin Calcium 20 mg HS PO 12/20/24 22:00 12/20/24 23:22 20 MG Clonidine HCl 0.1 mg Q4HP PRN PO 12/20/24 16:00 Diagnostic Test (Pha) 1 strip IQ4HR 12/20/24 16:00 12/21/24 11:45 1 STRIP Insulin Human Regular IQ4HR SC 12/20/24 16:00 Dextrose 50 ml UD PRN IV 12/20/24 16:00 Sodium Chloride 1,000 ml @ 60 mls/hr [id number] IV 12/20/24 16:00 12/21/24 08:40 60 MLS/HR Acetaminophen/ Hydrocodone Bitart 1 tab Q4HP PRN PO 12/20/24 16:00 Ondansetron HCl 4 mg Q4HP PRN IV 12/20/24 16:00 Docusate Sodium 100 mg BIDPRN PRN PO 12/20/24 16:00 Acetaminophen 650 mg Q6HP PRN PO 12/20/24 16:00 Nitroglycerin 0.4 mg Q5MINP PRN SL 12/20/24 17:15 Morphine Sulfate 2 mg Q30M PRN IV 12/20/24 17:15 Laboratory Results Laboratory Tests 12/21/24 06:27 Chemistry Test 12/21/24 06:27 Albumin 4.5 g/dL (3.2-4.8) Calcium Level 9.9 mg/dL (8.7-10.4) Total Protein 7.8 g/dL (5.7-8.2) LFT Test 12/21/24 06:27 Alanine Aminotransferase (ALT) < 9 U/L (7-40) Alkaline Phosphatase 85 U/L (46-116) Aspartate Amino Transferase (AST) 17 U/L (13-40) Total Bilirubin 1.2 mg/dL (0.2-1.0) H Urinalysis Test 12/20/24 10:38 Urine Color Light-yellow (Yellow) Urine Clarity Clear (Clear) Urine pH 6.0 (5.0-9.0) Urine Specific [place] 1.043 (1.001-1.035) Urine Protein Negative (Negative) Urine Ketones 1+ (Negative) H Urine Blood Negative /uL (Negative) Urine Nitrite Negative (Negative) Urine Bilirubin Negative (Negative) Urine Urobilinogen Normal mg/dL (Negative) Urine Leukocyte Esterase Negative /uL (Negative) Urine RBC 2 /hpf (0 - 4) Urine Microscopic WBC 1 /HPF (0-5) Urine Squamous Epithelial Cells Few /hpf (<5) Urine Bacteria None seen /hpf (None Seen) Urine Glucose 4+ mg/dL (Normal) H Urine Test Negative (Negative) Labs and/or images reviewed: Labs reviewed by me, Image(s) reviewed by me Assessment/Plan Assessment/Plan Impression: - Sepsis -diabetes mellitus -primary hypertension -dyslipidemia -cholelithiasis -obesity -ovarian cyst Plan: -OBGYN consultation: Cleared from their standpoint -discussion made with the patient regarding abdominal pain. She states that has been intermittent with right lower quadrant as well as inability to raise right knee up towards the chest. Abdominal ultrasound to rule out appendicitis, cholecystitis -regular insulin sliding scale -continue antihypertensives -start consistent carbohydrate diet after abdominal ultrasound -repeat labs in a.m. Total time spent with patient discussing and formulating plan of care: 35 minutes. This medical document was created using an electronic medical record system with [employer] dictation system. Although this document has been carefully reviewed, there may still be some phonetic and typographical errors. These areas are purely typographical due to imperfections of the software programs, and do not reflect any compromise in the patient's medical care. Plan discussed with: Patient, Other (RN, MOther) My Orders Orders - JUSTEN CAMACHO RN PAIN MANAGEMENT Procedure Category Date Status Time Abdomen Limited US 12/21/24 Logged 12:23 Consistent DIET 12/21/24 Transmitted Carb(Ccho)Diabetes Lunch Glucose Blood PHA 12/21/24 Logged (Accu-Chek Comfort 17:00 Insulin R (Human) PHA 12/21/24 Logged (Insulin R) 17:00 Dextrose 50% Syringe PHA 12/21/24 Logged 12:30 Hemoglobin A1c LAB 12/21/24 Transmitted 12:26 Lipid Panel LAB 12/21/24 Transmitted 12:26 Date of Service: Dec 21, 2024 Billing Provider: JUSTEN CAMACHO NP Common Visit Codes: [id number] INP/OBS CARE(HIGH) JUSTEN CAMACHO NP Dec 21, 2024 12:32
[2024-12-21 12:44] LABS: Triglycerides 100 mg/dL (< 150)
[2024-12-21 12:46] LABS: Cholesterol 143 mg/dL (< 200); HDL Cholesterol 48 mg/dL (40-59)
--- NOTE | 2024-12-21 13:46 | DVH ---
INDICATION: Rule out cholecystitis and appendicitis TECHNIQUE: Multiple real-time sonographic images of the abdomen were obtained. COMPARISON: None FINDINGS: The liver is heterogenous in echogenicity. The liver measures 17cm. No intrahepatic biliar y ductal dilatation is noted. The gallbladder wall measures 0.2 cm and is unremarkable. Gallstones are noted. The common duct elinor ures 0.5 cm and is unremarkable. No pericholecystic fluid is noted. The right kidney measures 11cm. No hydronephrosis. The pancreas is not well visualized due to obscuration from bowel gas. The visualized portions of the IVC and aorta are grossly unremarkable. IMPRESSION: Hepatic steatosis. Gallstones.
--- NOTE | 2024-12-21 13:47 | DVH ---
INDICATION: R/O APPENDICITIS, pain TECHNIQUE: Graded compression technique along with Multiple real-time sonographic images were obtain ed for evaluation of the right lower quadrant. FINDINGS: The appendix was not visualized. No free fluid or lymph nodes are seen on this exam. IMPRESSION: 1.Nonvisualization of the appendix, thus cannot exclude appendicitis.
[2024-12-21] MEDS: InsuLIN REG 1unit/0.01ml Soln (100units/ml) SC SCH (17:00)
[2024-12-21] MEDS: ACCU-CHEK COMFORT CURVE STRIP VI SCH (17:00)
[2024-12-21] MEDS: DOCUSATE SOD 100 MG CAP PO PRN (22:27)
[2024-12-22 05:00] VITALS: BP 114/78; PULSE 87; RESP 19; TEMP 98.8; O2SAT 98
[2024-12-22 06:40] LABS: Hematocrit 39.0 % (36.0-46.0); Hemoglobin 13.5 g/dL (12.2-16.2); Mean Corpuscular Hemoglobin 30.5 pg (28.0-32.0); Mean Corpuscular Volume 88.2 fL (80.0-100.0); Nucleated Red Blood Cells % 0.0 %
[2024-12-22 07:06] LABS: Alanine Aminotransferase 12 U/L (7-40); Albumin 4.5 g/dL (3.2-4.8); Alkaline Phosphatase 85 U/L (46-116); Anion Gap 13 (5-15); BUN/Creatinine Ratio 18.8 (10.0-20.0); Blood Urea Nitrogen 13 mg/dL (9-23); Calcium 9.3 mg/dL (8.7-10.4); Chloride 105 mmol/L (98-107); Potassium 4.2 mmol/L (3.5-5.1); Sodium 137 mmol/L (136-145); Total Protein 7.8 g/dL (5.7-8.2)
[2024-12-22 07:07] LABS: Bilirubin, Total 0.8 mg/dL (0.2-1.0)
[2024-12-22 07:08] LABS: Carbon Dioxide 19 mmol/L (20-31); Glucose 111 mg/dL (74-106)
[2024-12-22 08:00] VITALS: PULSE 92
[2024-12-22 08:44] VITALS: BP 116/87; PULSE 92; RESP 19; TEMP 97.8; O2SAT 98
[2024-12-22] MEDS: HYDROcodone-ACET 5/325MG TAB PO PRN (10:51)
[2024-12-22] MEDS ORDERED: HYDR-4902 PO (11:57)
[2024-12-22] MEDS ORDERED: AUG875T PO (11:57)
[2024-12-22 12:26] VITALS: BP 116/87; TEMP 36.6
[2024-12-22 13:00] VITALS: BP 134/81; PULSE 85; RESP 17; TEMP 98.2; O2SAT 97
--- NOTE | 2024-12-22 13:44 | DVHDS2 ---
Discharge Summary Date of Admission Dec 20, 2024 at 17:13 Date of Discharge: Dec 22, 2024 Admitting Diagnosis Adnexal mass Labs/Diagnostic Data: Laboratory Results Test 12/22/24 11:35 12/22/24 05:44 12/21/24 14:54 12/21/24 12:26 POC Glucose 136 mg/dl (70-106) White Blood Count 13.5 10^3/uL (4.4-10.8) Red Blood Count 4.42 10^6/uL (4.0-5.20) Hemoglobin 13.5 g/dL (12.2-16.2) Hematocrit 39.0 % (36.0-46.0) Mean Corpuscular Volume 88.2 fL (80.0-100.0) Mean Corpuscular Hemoglobin 30.5 pg (28.0-32.0) Mean Corpuscular Hemoglobin Concent 34.6 g/dL (32.0-36.0) Red Cell Distribution Width 13.9 % (11.8-14.3) Platelet Count 323 10^3/uL (140-450) Mean Platelet Volume 9.1 fL (6.9-10.8) Neutrophils (%) (Auto) 72.6 % (37.0-80.0) Lymphocytes (%) (Auto) 16.3 % (10.0-50.0) Monocytes (%) (Auto) 8.5 % (0.0-12.0) Eosinophils (%) (Auto) 1.9 % (0.0-7.0) Basophils (%) (Auto) 0.7 % (0.0-2.0) Neutrophils # (Auto) 9.8 10 ^3/uL (1.6-8.6) Lymphocytes # (Auto) 2.2 10 ^3/uL (0.4-5.4) Monocytes # (Auto) 1.1 10 ^3/uL (0-1.3) Eosinophils # (Auto) 0.3 10 ^3/uL (0-0.8) Basophils # (Auto) 0.1 10 ^3/uL (0-0.2) Nucleated Red Blood Cells 0.0 % Sodium Level 137 mmol/L (136-145) Potassium Level 4.2 mmol/L (3.5-5.1) Chloride Level 105 mmol/L (98-107) Carbon Dioxide Level 19 mmol/L (20-31) Anion Gap 13 (5-15) Blood Urea Nitrogen 13 mg/dL (9-23) Creatinine 0.69 mg/dL (0.550-1.02) Glomerular Filtration Rate Calc 115 mL/min (>90) BUN/Creatinine Ratio 18.8 (10.0-20.0) Serum Glucose 111 mg/dL (74-106) Calcium Level 9.3 mg/dL (8.7-10.4) Total Bilirubin 0.8 mg/dL (0.2-1.0) Aspartate Amino Transferase (AST) 19 U/L (13-40) Alanine Aminotransferase (ALT) 12 U/L (7-40) Alkaline Phosphatase 85 U/L (46-116) Total Protein 7.8 g/dL (5.7-8.2) Albumin 4.5 g/dL (3.2-4.8) Hemoglobin A1c 7.1 % A1C (<5.7) Triglycerides Level 100 mg/dL (< 150) Cholesterol Level 143 mg/dL (< 200) LDL Cholesterol 84 mg/dL (< 100) HDL Cholesterol 48 mg/dL (40-59) Test 12/20/24 13:01 12/20/24 10:39 12/20/24 10:38 Lactic Acid Level 1.2 mmol/L (0.4-2.0) Urine Opiates Screen Neg (NEGATIVE) Urine Fentanyl Screen Neg (NEGATIVE) Urine Barbiturates Screen Neg (NEGATIVE) Urine Phencyclidine Screen Neg (NEGATIVE) Urine Amphetamines Screen Neg (NEGATIVE) Urine Benzodiazepines Screen Neg (NEGATIVE) Urine Cocaine Screen Neg (NEGATIVE) Urine Cannabinoids Screen Neg (NEGATIVE) Urine Color Light-yellow (Yellow) Urine Clarity Clear (Clear) Urine pH 6.0 (5.0-9.0) Urine Specific [place] 1.043 (1.001-1.035) Urine Protein Negative (Negative) Urine Ketones 1+ (Negative) Urine Blood Negative /uL (Negative) Urine Nitrite Negative (Negative) Urine Bilirubin Negative (Negative) Urine Urobilinogen Normal mg/dL (Negative) Urine Leukocyte Esterase Negative /uL (Negative) Urine RBC 2 /hpf (0 - 4) Urine Microscopic WBC 1 /HPF (0-5) Urine Squamous Epithelial Cells Few /hpf (<5) Urine Bacteria None seen /hpf (None Seen) Urine Glucose 4+ mg/dL (Normal) Urine Test Negative (Negative) Other Laboratory Tests 12/22/24 05:44 Brief Hx & Hospital Course: History of Present Illness The patient is a 39-year-old female with past medical history of DM, hypertension, and hyperlipidemia who presented to [facility] ED with complaint of abdominal pain for the past 2 weeks. Patient reported she was constipated for about a week, started to have abdominal pain located across the lower abdomen in the left lower quadrant, suprapubic area radiating to the right lower quadrant, constant with intermittent episodes of sharp pain, getting worse that prompted this visit. Patient was seen and evaluated in the ED, laboratory data shows WBC 19.5, platelets 374, sodium 137, potassium 4.3, BUN 9, creatinine 0.76, glucose 179, calcium 10.4, lactic acid 1.2, blood pressure 124/73, heart rate 102, temperature 97.9 F, O2 saturation 99% room air. Abdomen/pelvis CT revealing 9.3 cm right adrenal cystic mixed density mass probably representing a cystic and solid mass, no acute abdominal pelvic findings. Pelvic ultrasound revealing probable hemorrhagic cyst in the right ovary measures 6.6 cm. Please see medication orders section in the computer. On my assessment, patient denies chest pain, no headache, no dizziness, no shortness of breaths, no diarrhea, no abdominal pain at this moment, no nausea, no vomiting, no fever, no chills. Patient was admitted for further evaluation and medical management. Course of hospitalization: Patient had evaluation by OBGYN, for which after reviewing pelvic ultrasound, no surgical intervention was needed at this time. Patient was continued on antibiotic therapy with Zosyn Flagyl. White blood cell count improving. Reviewing the patient's pain, it appears to be in a right lower quadrant. Negative Rovsing, psoas sign. Ultrasound was performed to right lower quadrant as well as right upper quadrant to rule out appendicitis as well as cholecystitis. Both findings are unremarkable, but noted large cholelithiasis. Patient's symptoms have improved dramatically. She is tolerating oral intake. Patient will be discharged home as instructed follow up with her PCP in two weeks. She will be continued on antibiotic therapy with Augmentin 875 mg p.o. b.i.d. for additional seven days. Patient was instructed to continue all occasions. Physical examination General: Alert and Oriented x3. No acute distress. Well-nourished. Obese Eyes: EOMI. Anicteric. HENT: Moist mucous membranes. Lungs: Clear to auscultation bilaterally. No accessory muscle use. Cardiovascular: Regular rate and rhythm. No murmur. No JVD. Abdomen: Soft, non-tender and non-distended. No palpable masses. Extremities: No edema. Non-tender. Skin: No rashes or lesions. Warm. Neurologic: No focal neurological deficits. CN II-XII grossly intact, but not individually tested. Psychiatric: Cooperative. Appropriate mood and affect. Total time spent with patient discussing and formulating plan of care: 35 minutes. This medical document was created using an electronic medical record system with [email or web address] dictation system. Although this document has been carefully reviewed, there may still be some phonetic and typographical errors. These areas are purely typographical due to imperfections of the software programs, and do not reflect any compromise in the patient's medical care. Consults/Reason for consult OBGYN: Adnexal mass Condition at Discharge: Fair Final Diagnosis/Problems List Sepsis Secondary diagnosis: -diabetes mellitus -primary hypertension -dyslipidemia -cholelithiasis -obesity -ovarian cyst Discharge Disposition: Home Discharge Instruct/Medications Diet: Consistent carbohydrate, Cardiac 2g Na,low cholest Activity: No Restrictions, As Tolerated Follow Up/Referral: PCP in 1-2 weeks Medications: Augmentin 875mg po bid x 7 days [place] 5/325mg po q8hrs prn pain Continue all home medications Scheduled Amoxicillin & Pot Clavulanate (Augmentin Tablet), 875 MG PO BID Atorvastatin Calcium (Atorvastatin Calcium), 1 TAB PO DAILY, (Reported) Hydrocodone-Acetaminophen (Hydrocodone Bitartrate/AC 5-325 mg), 1 TAB PO Q8HR 36 Discharge Statement: "Patient was advised to return to the ER or call 911 if any headaches, dizziness, shortness of breath, chest pain, abdominal pain, bleeding, fevers, or worsening of medical condition. Patient was counseled about treatment plan, medications, possible side effects, patientverbalized understanding. All questions were answered to the best of my ability. This discharge took greater then 30 minutes in planning, reviewing documentation, counseling the patient, and discussing with other team members." ASSESSMENT ASSESSMENT Assessment Sepsis Date of Service: Dec 22, 2024 Billing Provider: JUSTEN CAMACHO NP Common Visit Codes: [id number] DISCH DAY >30min JUSTEN CAMCAHO NP Dec 22, 2024 13:44
== END 2024-12-22 13:15 | disposition home or self-care (01) | DRG 720 ==
LOC: ER 10:06 → OVERFLOW 17:13 → TELE-WESTW 12-21 03:56
PROVIDERS: ADMIT Nurse Practitioner Acute Care; ATTEND Nurse Practitioner Acute Care
DX: A41.9 Sepsis, unspecified organism (principal); A09 Infectious gastroenteritis and colitis, unspecified; E11.9 Type 2 diabetes mellitus without complications; I10 Essential (primary) hypertension; E66.9 Obesity, unspecified; Z68.35 Body mass index [BMI] 35.0-35.9, adult; E78.5 Hyperlipidemia, unspecified; K59.00 Constipation, unspecified; K80.20 Calculus of gallbladder without cholecystitis without obstruction; N83.201 Unspecified ovarian cyst, right side
CPT/HCPCS: 36415; 74176; 76705; 76856; 80048; 80053; 80061; 80307; 81001; 81025; 82962; 83036; 83605; 85025; G0378; J1815; J1885; J2543

== ENCOUNTER → 2025-04-01 | Emergency (ER) | payer MEDICAID ==
[~2025-04-01] VITALS: Ht 152.4 cm; Wt 81.0 kg
[~2025-04-01] MED LIST: ATOR20TA50 PO; AUG875T PO; CEFEPIME 1GM/50ML 50 ML IV SCH; HYDR-4902 PO
[2025-04-01 07:50] VITALS: BP 124/85; PULSE 125; RESP 20; TEMP 98; O2SAT 98
== END | disposition left against medical advice (07) ==
LOC: ER 07:48
DX: R10.9 Unspecified abdominal pain (principal); Z53.21 Procedure and treatment not carried out due to patient leaving prior to being seen by health care provider